=== PATIENT | male | born 1965 | race Caucasian/White ===

== ENCOUNTER 2020-08-19 08:00 | Outpatient (CLI) | payer OTHER | END 2020-08-19 08:01 | disposition home or self-care (01) | LOC: COV 08:00 | PROVIDERS: ATTEND Family Medicine | DX: M79.10 Myalgia, unspecified site (principal); R09.81 Nasal congestion; Z20.828 Contact with and (suspected) exposure to other viral communicable diseases ==

== ENCOUNTER 2021-10-17 08:00 | Outpatient (CLI) | payer OTHER | END 2021-10-17 23:59 | LOC: LAB.N 08:00 | PROVIDERS: ATTEND Physician Assistant | DX: R05.3 Chronic cough (principal); Z20.822 Contact with and (suspected) exposure to COVID-19 | CPT/HCPCS: 87275; 87276 ==

== ENCOUNTER 2021-10-17 12:40 | Outpatient (CLI) | payer OTHER ==
--- NOTE | 2021-10-17 19:50 | XRAY Report ---
PROCEDURE: Chest 2 View X-Ray INDICATIONS: UNEXPLAINED COUGH TECHNIQUE: 2 views of the chest. COMPARISON: None. FINDINGS: Surgical changes and devices: None. Lungs and pleura: No pleural effusions or pneumothorax. Lungs are clear. Mediastinum: Mediastinal contours are normal. Heart size is normal. Bones and chest wall: No suspicious bony abnormalities. Soft tissues appear unremarkable. Mild age -related degenerative changes in the spine. IMPRESSION: No acute cardiopulmonary abnormality. Reviewed by: Raffi Watt MD on 10/17/2021 7:49 PM PST Approved by: Raffi Watt MD on 10/17/2021 7:49 PM [facility] Station ID: [id number]
== END 2021-10-17 23:59 ==
LOC: DI.N 12:40
PROVIDERS: ATTEND Physician Assistant
DX: R05.3 Chronic cough (principal)